=== PATIENT | male | born 1970 | race Caucasian/White ===

== ENCOUNTER → 2020-07-03 | Outpatient (CLI) | payer OTHER | LOC: M LABSMTC 10:28 | PROVIDERS: ATTEND Anesthesiology | DX: Z01.812 Encounter for preprocedural laboratory examination (principal); Z20.822 Contact with and (suspected) exposure to COVID-19 ==

== ENCOUNTER 2020-07-08 09:54 | Day surgery (SDC) | payer OTHER ==
[~2020-07-08] VITALS: Ht 182.9 cm; Wt 93.0 kg
[~2020-07-08 09:54] MED LIST: LIDOCAINE 1% MDV 20ML VIAL SQ PRN; LR 1,000 ML IV ONE
[2020-07-08] MEDS ORDERED: ceFAZolin 1GM VIAL (J0690 PER 500MG) As Ordered ONE (11:01)
[2020-07-08] MEDS ORDERED: BUPIVACAINE/EPIN 0.25% 30 ML VIAL As Ordered ONE (11:21)
[2020-07-08] MEDS ORDERED: ceFAZolin SOD 1 GM in D5W MINI-BAG PLUS 50 ML IV ONE (12:00)
[2020-07-08] MEDS ORDERED: LIDOCAINE 2% 100MG/5ML SDV (FOR ANES.) As Ordered ONE (12:03)
[2020-07-08] MEDS ORDERED: ROCURONIUM BROMIDE 50 MG/5 ML VIAL As Ordered ONE (12:03)
[2020-07-08] MEDS ORDERED: propofoL 200 MG/20 ML VIAL As Ordered ONE (12:03)
[2020-07-08] MEDS ORDERED: METOCLOPRAMIDE INJ 10MG/2ML VIAL (J2765 PER 1) As Ordered ONE (12:03)
[2020-07-08] MEDS ORDERED: dexameTHASONE 4 MG/ML 1ML VIAL (J1100 PER 1MG) As Ordered ONE (12:03)
[2020-07-08] MEDS ORDERED: MIDAZOLAM INJ 2MG/2ML VIAL (J2250 PER 1MG) As Ordered ONE (12:03)
[2020-07-08] MEDS ORDERED: KETOROLAC 60MG 2ML VIAL As Ordered ONE (12:03)
[2020-07-08] MEDS ORDERED: ONDANSETRON 4MG/2ML VIAL As Ordered ONE (12:03)
[2020-07-08] MEDS ORDERED: fentaNYL 250 MCG/5 ML INJECTION (J3010) As Ordered ONE (12:03)
[2020-07-08] MEDS ORDERED: SUGAMMADEX SODIUM 500 MG/5 ML VIAL (BRIDION) As Ordered ONE (12:03)
[2020-07-08] MEDS ORDERED: ACETAMINOPHEN 1000MG 100ML IV BTL (OFIRMEV) (J0131 PER 10MG) As Ordered ONE (12:04)
[2020-07-08] MEDS ORDERED: MEPERIDINE INJ 25 MG/ML VIAL (J2175) As Ordered ONE (13:24)
--- NOTE | 2020-07-08 13:24 | RO ---
OPERATIVE NOTE DATE OF OPERATION: 07/08/2020 PREOPERATIVE DIAGNOSIS: Left inguinal hernia (recurrent). POSTOPERATIVE DIAGNOSIS: Recurrent left inguinal hernia (direct). PROCEDURE: Robotic-assisted laparoscopic repair of a left inguinal hernia with ProGrip mesh. SURGEON: Sabino Mejia Jr., M.D. LINE PAINTING MACHINE OPERATOR: RIVKA Encarnacion (provided instrument exchange, trocar placement, abdominal wall closure, and mesh placement). ANESTHESIA: General endotracheal. ESTIMATED BLOOD LOSS: Minimal. FLUIDS: Crystalloid. DISPOSITION: The patient was taken to the recovery room awake, alert, and hemodynamically stable. BRIEF OPERATIVE SUMMARY: The patient was taken to the operating room and was given general anesthesia. After adequate anesthesia and preoperative antibiotics were given, the patient was prepped and draped in the usual sterile fashion. Next, a supraumbilical incision was made with a skin knife. Blunt dissection was carried down to the fascia. The fascia was entered with a Veress needle and insufflated to 15 mm of pressure. An 8-mm trocar was placed at this time and under direct visualization, two lateral 8-mm trocars were placed. Once these were placed, the patient was placed in a steep Trendelenburg position and the left inguinal hernia was easily seen on visualization. The peritoneum was taken down with monopolar cut scissors and a very attenuated thin peritoneum was seen, but essentially we were able to mobilize this adequately and get this out of the inguinal canal. It was a very small intrusion of the internal ring, but not a true hernia. In the direct area, there was a hernia that was well visualized, mobilized, and reduced off Catrachito's, as well as lateral border of the pubis. Once this was mobilized off the cord structures and the vas was well visualized, the mesh was cut to the appropriate size and placed in the preperitoneal space and pressed into position. The peritoneum was closed over the top of this using 3-0 V-Loc and the trocars were removed under direct visualization. A 4-0 Vicryl was used to close all incisions. Steri-Strips and a dry sterile dressing were applied. The patient was awakened, extubated, and brought to the recovery room awake, alert, and hemodynamically stable. Sponge and needle counts correct x2.
[2020-07-08 13:52] VITALS: BP 150/88
[2020-07-08] MEDS ORDERED: ONDANSETRON 4MG/2ML VIAL IV PRN (14:00)
[2020-07-08] MEDS ORDERED: LR 1,000 ML IV SCH (14:00)
[2020-07-08] MEDS ORDERED: MEPERIDINE INJ 25 MG/ML VIAL (J2175) IV PRN (14:00)
[2020-07-08] MEDS ORDERED: oxyCODONE 5MG TAB PO PRN (14:00)
[2020-07-08] MEDS ORDERED: fentaNYL 100 MCG/2 ML INJECTION (J3010) IV PRN (14:00)
[2020-07-08] MEDS ORDERED: traMADol 50 MG TAB PO PRN (15:00)
== END 2020-07-08 15:00 | disposition home or self-care (01) ==
LOC: M SDC 09:54
PROVIDERS: ATTEND Surgery
DX: K40.91 Unilateral inguinal hernia, without obstruction or gangrene, recurrent (principal); K21.9 Gastro-esophageal reflux disease without esophagitis
CPT/HCPCS: 49651; C1781; J0131; J0690; J1100; J1885; J2250; J2405; J2765; J3010; S2900

== ENCOUNTER → 2024-09-18 | Outpatient (CLI) | payer OTHER ==
[~2024-09-18] MED LIST changes: -LIDOCAINE 1% MDV 20ML VIAL SQ PRN; -LR 1,000 ML IV ONE; +PROHANCE 279.3MG/ML 15ML VIAL As Ordered ONE; +PROHANCE 279.3MG/ML 5ML VIAL As Ordered ONE
== END ==
LOC: M RAD 16:18
PROVIDERS: ATTEND Otolaryngology
DX: C43.4 Malignant melanoma of scalp and neck (principal)
CPT/HCPCS: 70553; A9576

== ENCOUNTER → 2024-09-18 | Outpatient (CLI) | payer OTHER | LOC: M PLARAD 09:20 | PROVIDERS: ATTEND Otolaryngology | DX: C43.4 Malignant melanoma of scalp and neck (principal) | CPT/HCPCS: 78815; A9552 ==

== ENCOUNTER → 2024-11-24 | Outpatient (REF) ==
[~2024-11-24] MED LIST changes: +ONDA-83 PO; +PROC10TA5 PO; -PROHANCE 279.3MG/ML 15ML VIAL As Ordered ONE; -PROHANCE 279.3MG/ML 5ML VIAL As Ordered ONE
== END ==
LOC: M CFLAB 21:45
PROVIDERS: ATTEND Physician Assistant
DX: R11.2 Nausea with vomiting, unspecified (principal)

== ENCOUNTER 2024-11-25 05:35 | Inpatient (IN) | payer OTHER ==
[~2024-11-25] VITALS: Ht 182.9 cm; Wt 89.1 kg
[2024-11-25 12:41] VITALS: BP 136/92; TEMP 99.5; O2SAT 98
[2024-11-25 14:19] LABS: PLATELET COUNT, AUTOMATED 311 10^3/uL (150-450)
[2024-11-25] MEDS ORDERED: NS (Normal Saline) 0.9% 1,000 ML IV SCH (14:25)
[2024-11-25 14:52] LABS: ATYPICAL LYMPH 3 % (0-5); BASOPHILS 1 % (0-1); EOSINOPHILS 1 % (0-3); LYMPHOCYTES 10 % (16-44); MONOCYTES 15 % (0-5); NEUTROPHILS 33 % (28-66)
[2024-11-25 14:53] LABS: PLATELET ESTIMATE NORMAL (NORMAL)
[2024-11-25] MEDS: ONDANSETRON 4MG 2ML VIAL IV PRN (15:14)
[2024-11-25] MEDS: PANTOPRAZOLE 40MG VIAL IV SCH (15:14)
[2024-11-25] MEDS: NS (Normal Saline) 0.9% 1,000 ML IV ONE (15:15)
[2024-11-25] MEDS ORDERED: MED REC IN PROGRESS XX SCH (15:45)
[2024-11-25 16:08] VITALS: TEMP 102.3
[2024-11-25 16:12] VITALS: BP 134/91; TEMP 102.3; O2SAT 91
[2024-11-25] MEDS: PIPERACILLIN/TAZOBACTAM SOD 3.375 GM in DEXTROSE 5% (D5W) ADV/MINI-BAG 50 ML IV SCH (16:44)
[2024-11-25] MEDS: NS (Normal Saline) 0.9% 1,000 ML IV SCH (16:44)
[2024-11-25] MEDS: ACETAMINOPHEN 500 MG TAB PO PRN (16:45)
[2024-11-25 18:26] VITALS: TEMP 99.9
[2024-11-25 20:56] VITALS: BP 132/90; TEMP 100.3; O2SAT 98
[2024-11-25 21:03] VITALS: TEMP 99.7
[2024-11-25] MEDS: LOPERAMIDE 2 MG CAPLET PO PRN (21:30)
[2024-11-26] VITALS (10 sets, daily range): BP systolic 130–131; BP diastolic 80–88; TEMP 97.8–102.4; O2SAT 88–95
[2024-11-26 03:44] LABS: INR 1.2
[2024-11-26 03:48] LABS: BASO # 0.0 10^3/uL (0.0-0.2); BASO % 0.5 % (0.0-1.0); EOS # 0.0 10^3/uL (0.0-0.5); EOS % 0.2 % (0.0-3.0); LYMPH # 0.7 10^3/uL (1.5-5.0); LYMPH % 11.0 % (24.0-44.0); MONO # 1.2 10^3/uL (0.0-0.8); MONO % 18.3 % (2.0-8.0); NEUTROPHILS # 4.5 10^3/uL (1.5-8.5); NEUTROPHILS % 67.3 % (36.0-66.0); PLATELET COUNT, AUTOMATED 280 10^3/uL (150-450)
[2024-11-26 03:53] LABS: ALT/SGPT 12.0 U/L (7.0-40); AST/SGOT 12.0 U/L (<34); CALCIUM LEVEL 7.9 MG/DL (8.5-10.1); CARBON DIOXIDE LEVEL 26.0 MMOL/L (20-31); CHLORIDE LEVEL 104.0 MMOL/L (98-107); CREATININE FOR GFR 1.17 MG/DL (0.70-1.30); GLOMERULAR FILTRATION RATE 75.0 (>56); MAGNESIUM LEVEL 1.4 MG/DL (1.8-2.4); POTASSIUM SERUM 3.7 MMOL/L (3.5-5.1); SODIUM LEVEL 142.0 MMOL/L (136-145)
[2024-11-26] MEDS: MAG SULF 1GM/100ML (MAG RUN) 1 GM in IV 1 EA IV SCH (04:57)
[2024-11-26] MEDS ORDERED: ONDA-83 PO (09:59)
[2024-11-26] MEDS ORDERED: PROC10TA5 PO (09:59)
[2024-11-26] MEDS ORDERED: HOME MED LIST COMPLETE! XX SCH (10:00)
[2024-11-26] MEDS: ENOXAPARIN 40 MG/0.4 ML SYRINGE (J1650 PER 10MG) SC SCH (10:04)
[2024-11-26] MEDS: UNRESOLVED CLARIFICATION ENTRY XX SCH (11:21)
[2024-11-26] MEDS: AZITHROMYCIN 250 MG TABLET PO SCH (11:26)
[2024-11-26] MEDS: ONDANSETRON 4MG 2ML VIAL IV SCH (11:26)
[2024-11-26] MEDS: ACETAMINOPHEN 325 MG TAB PO PRN (21:16)
[2024-11-26 22:46] LABS: FREE T4 1.36 NG/DL (0.89-1.76)
[2024-11-27 03:34] VITALS: BP 131/88; TEMP 99.5; O2SAT 90
[2024-11-27 04:51] VITALS: O2SAT 90
[2024-11-27 06:47] LABS: BASO # 0.1 10^3/uL (0.0-0.2); BASO % 0.7 % (0.0-1.0); EOS # 0.0 10^3/uL (0.0-0.5); EOS % 0.1 % (0.0-3.0); LYMPH # 0.7 10^3/uL (1.5-5.0); LYMPH % 10.2 % (24.0-44.0); MONO # 1.1 10^3/uL (0.0-0.8); MONO % 15.1 % (2.0-8.0); NEUTROPHILS # 4.9 10^3/uL (1.5-8.5); NEUTROPHILS % 69.1 % (36.0-66.0); PLATELET COUNT, AUTOMATED 299 10^3/uL (150-450)
[2024-11-27 07:00] LABS: CALCIUM LEVEL 8.0 MG/DL (8.5-10.1); CARBON DIOXIDE LEVEL 25.0 MMOL/L (20-31); CHLORIDE LEVEL 102.0 MMOL/L (98-107); CREATININE FOR GFR 1.11 MG/DL (0.70-1.30); GLOMERULAR FILTRATION RATE 79.9 (>56); POTASSIUM SERUM 3.3 MMOL/L (3.5-5.1); SODIUM LEVEL 143.0 MMOL/L (136-145)
[2024-11-27 08:43] LABS: MAGNESIUM LEVEL 2.1 MG/DL (1.8-2.4)
[2024-11-27] MEDS: NS 0.45% 1,000 ML IV ONE (09:31)
[2024-11-27] MEDS: POTASSIUM CHLORIDE 10MEQ SR TABLET PO ONE (09:31)
[2024-11-27 12:00] VITALS: BP_SYST 133; BP_SYST 135; BP_DIAS 68; BP_DIAS 91; TEMP 98.1; TEMP 99.8; O2SAT 91; O2SAT 97
[2024-11-27] MEDS: MAG SULF 1GM/100ML (MAG RUN) 1 GM in IV 1 EA IV ONE (12:32)
[2024-11-27] MEDS: KCL 40MEQ IN D5/0.45NS 1000ML 1,000 ML IV SCH (13:44)
[2024-11-27 16:56] LABS: CALCIUM LEVEL 8.2 MG/DL (8.5-10.1); CARBON DIOXIDE LEVEL 25 MMOL/L (20-31); CHLORIDE LEVEL 101 MMOL/L (98-107); CREATININE FOR GFR 1.00 MG/DL (0.70-1.30); GLOMERULAR FILTRATION RATE > 90.0 (>56); MAGNESIUM LEVEL 2.4 MG/DL (1.8-2.4); POTASSIUM SERUM 3.5 MMOL/L (3.5-5.1); SODIUM LEVEL 141 MMOL/L (136-145)
[2024-11-27 20:36] VITALS: BP 121/84; TEMP 99; O2SAT 94
[2024-11-28 03:40] VITALS: BP 153/80; TEMP 97.8; O2SAT 99
[2024-11-28 03:45] VITALS: BP 127/88; TEMP 98.8; O2SAT 94
[2024-11-28 07:07] LABS: CALCIUM LEVEL 8.4 MG/DL (8.5-10.1); CARBON DIOXIDE LEVEL 27.0 MMOL/L (20-31); CHLORIDE LEVEL 104.0 MMOL/L (98-107); CREATININE FOR GFR 1.01 MG/DL (0.70-1.30); GLOMERULAR FILTRATION RATE 89.5 (>56); POTASSIUM SERUM 3.6 MMOL/L (3.5-5.1); SODIUM LEVEL 141.0 MMOL/L (136-145)
[2024-11-28 07:10] LABS: PLATELET COUNT, AUTOMATED 329 10^3/uL (150-450)
[2024-11-28 08:44] LABS: MONOCYTES 15 % (0-5)
[2024-11-28 08:45] LABS: NEUTROPHILS 52 % (28-66)
[2024-11-28 08:46] LABS: ATYPICAL LYMPH 1 % (0-5); LYMPHOCYTES 7 % (16-44); PLATELET ESTIMATE NORMAL (NORMAL)
[2024-11-28 12:00] VITALS: BP 127/90; TEMP 95.9; O2SAT 94
[2024-11-28] MEDS: SODIUM CHLORIDE 0.9% INJ 10 ML SYR IV SCH (18:29)
[2024-11-28 21:24] VITALS: BP 124/87; TEMP 99.3; O2SAT 93
[2024-11-29 05:22] VITALS: BP 125/88; TEMP 99; O2SAT 93
[2024-11-29 05:55] LABS: BASO # 0.1 10^3/uL (0.0-0.2); BASO % 0.6 % (0.0-1.0); EOS # 0.0 10^3/uL (0.0-0.5); EOS % 0.1 % (0.0-3.0); LYMPH # 0.9 10^3/uL (1.5-5.0); LYMPH % 8.6 % (24.0-44.0); MONO # 1.5 10^3/uL (0.0-0.8); MONO % 15.0 % (2.0-8.0); NEUTROPHILS # 7.5 10^3/uL (1.5-8.5); NEUTROPHILS % 74.3 % (36.0-66.0); PLATELET COUNT, AUTOMATED 375 10^3/uL (150-450)
[2024-11-29 06:04] LABS: CALCIUM LEVEL 9.0 MG/DL (8.5-10.1); CARBON DIOXIDE LEVEL 27.0 MMOL/L (20-31); CHLORIDE LEVEL 101.0 MMOL/L (98-107); CREATININE FOR GFR 1.05 MG/DL (0.70-1.30); GLOMERULAR FILTRATION RATE 85.4 (>56); POTASSIUM SERUM 3.3 MMOL/L (3.5-5.1); SODIUM LEVEL 141.0 MMOL/L (136-145)
[2024-11-29 12:00] VITALS: BP 125/89; TEMP 98.1; O2SAT 94
[2024-11-29] MEDS: POLYVINYL ALCOHOL OPHTH SOLN 15ML (LIQUITEARS) OU PRN (18:25)
[2024-11-29 20:41] VITALS: BP 128/84; TEMP 97.4; O2SAT 92
[2024-11-30 05:04] VITALS: BP 124/86; TEMP 98.2; O2SAT 93
[2024-11-30 06:05] LABS: BASO # 0.1 10^3/uL (0.0-0.2); BASO % 0.4 % (0.0-1.0); EOS # 0.0 10^3/uL (0.0-0.5); EOS % 0.1 % (0.0-3.0); LYMPH # 0.8 10^3/uL (1.5-5.0); LYMPH % 6.7 % (24.0-44.0); MONO # 1.8 10^3/uL (0.0-0.8); MONO % 15.5 % (2.0-8.0); NEUTROPHILS # 8.9 10^3/uL (1.5-8.5); NEUTROPHILS % 76.2 % (36.0-66.0); PLATELET COUNT, AUTOMATED 415 10^3/uL (150-450)
[2024-11-30 06:33] LABS: CALCIUM LEVEL 9.1 MG/DL (8.5-10.1); CARBON DIOXIDE LEVEL 26.0 MMOL/L (20-31); CHLORIDE LEVEL 100.0 MMOL/L (98-107); CREATININE FOR GFR 1.22 MG/DL (0.70-1.30); GLOMERULAR FILTRATION RATE 71.3 (>56); POTASSIUM SERUM 3.3 MMOL/L (3.5-5.1); SODIUM LEVEL 142.0 MMOL/L (136-145)
[2024-11-30] MEDS ORDERED: MAG SULF 1GM/100ML (MAG RUN) 1 GM in IV 1 EA IV ONE (08:00)
[2024-11-30 08:17] LABS: MAGNESIUM LEVEL 2.6 MG/DL (1.8-2.4); PHOSPHORUS LEVEL 3.8 MG/DL (2.5-4.9)
[2024-11-30] MEDS: NS 0.45% 1,000 ML IV SCH (09:06)
[2024-11-30] MEDS: POTASSIUM CHLORIDE 10MEQ SR TABLET PO ONE (09:09)
[2024-11-30] MEDS: ONDANSETRON 4MG 2ML VIAL IV ONE (09:16)
[2024-11-30] MEDS: KCL 40MEQ IN D5/0.45NS 1000ML 1,000 ML IV SCH (11:50)
[2024-11-30 12:00] VITALS: BP 124/87; TEMP 99; O2SAT 97
[2024-11-30 14:47] LABS: CALCIUM LEVEL 8.5 MG/DL (8.5-10.1); CARBON DIOXIDE LEVEL 26.0 MMOL/L (20-31); CHLORIDE LEVEL 100.0 MMOL/L (98-107); CREATININE FOR GFR 1.06 MG/DL (0.70-1.30); GLOMERULAR FILTRATION RATE 84.4 (>56); POTASSIUM SERUM 3.2 MMOL/L (3.5-5.1); SODIUM LEVEL 138.0 MMOL/L (136-145)
[2024-11-30] MEDS: LOPERAMIDE 2 MG CAPLET PO ONE (14:57)
[2024-11-30] MEDS: INSULIN LISPRO (NovoLOG) PER UNIT SC SCH (15:58)
[2024-11-30] MEDS: KCL 10MEQ/100ML SWI (KRUN) 10 MEQ in IV 1 EA IV SCH (16:05)
[2024-11-30] MEDS: VITAMIN A & D OINTMENT 42.5GM TOP SCH (16:06)
[2024-11-30] MEDS: AMINO AC/ELECTROLYTE/DEX/CALC 1,000 ML IV SCH (17:44)
[2024-11-30] MEDS: FAT EMULSION IV 250 ML IV ONE (17:44)
[2024-11-30 20:00] VITALS: BP 124/88; TEMP 99; O2SAT 93
[2024-11-30] MEDS: SODIUM CHLORIDE 0.9% INJ 10 ML SYR IV PRN (22:31)
[2024-11-30] MEDS ORDERED: LIDOCAINE 2% 5 ML JELLY UROJET TOP PRN (22:45)
[2024-12-01] MEDS: DIPHENOXYLATE HCL/ATROPINE 2.5 MG/0.025 MG TABLET PO ONE ×2 (00:01→06:09)
[2024-12-01 01:07] LABS: KETONE, URINE AUTO RFX NEGATIVE (NEGATIVE); MUCUS, URINE RFX SMALL (NEGATIVE); NITRITE, URINE AUTO RFX NEGATIVE (NEGATIVE); RBC, URINE AUTO RFX TNTC /HPF (0-3); SQUAM EPITHELIAL CELL UR AURFX 0 /HPF (0-6)
[2024-12-01 01:21] LABS: LEUKOCYTE ESTERASE UR AUTO RFX TRACE (NEGATIVE); WBC, URINE AUTO RFX 22 /HPF (0-3)
[2024-12-01 01:47] LABS: CALCIUM LEVEL 8.0 MG/DL (8.5-10.1); CARBON DIOXIDE LEVEL 24 MMOL/L (20-31); CHLORIDE LEVEL 101 MMOL/L (98-107); CREATININE FOR GFR 0.93 MG/DL (0.70-1.30); GLOMERULAR FILTRATION RATE > 90.0 (>56); POTASSIUM SERUM 3.8 MMOL/L (3.5-5.1); SODIUM LEVEL 135 MMOL/L (136-145)
[2024-12-01] MEDS ORDERED: DIPHENOXYLATE HCL/ATROPINE 2.5 MG/0.025 MG TABLET PO SCH (06:00)
[2024-12-01 06:06] VITALS: BP 121/80; TEMP 98.2; O2SAT 94
[2024-12-01] MEDS: NS (Normal Saline) 0.9% 1,000 ML IV ONE ×2 (06:12→08:44)
[2024-12-01 06:34] LABS: BASO # 0.0 10^3/uL (0.0-0.2); BASO % 0.3 % (0.0-1.0); EOS # 0.0 10^3/uL (0.0-0.5); EOS % 0.2 % (0.0-3.0); LYMPH # 0.8 10^3/uL (1.5-5.0); LYMPH % 8.7 % (24.0-44.0); MONO # 1.0 10^3/uL (0.0-0.8); MONO % 10.8 % (2.0-8.0); NEUTROPHILS # 7.3 10^3/uL (1.5-8.5); NEUTROPHILS % 78.1 % (36.0-66.0); PLATELET COUNT, AUTOMATED 288 10^3/uL (150-450)
[2024-12-01 07:00] LABS: CALCIUM LEVEL 8.0 MG/DL (8.5-10.1); CARBON DIOXIDE LEVEL 25 MMOL/L (20-31); CHLORIDE LEVEL 102 MMOL/L (98-107); CREATININE FOR GFR 0.81 MG/DL (0.70-1.30); GLOMERULAR FILTRATION RATE > 90.0 (>56); POTASSIUM SERUM 3.3 MMOL/L (3.5-5.1); SODIUM LEVEL 137 MMOL/L (136-145)
[2024-12-01 08:09] LABS: ERYTHROCYTE SEDIMENTATION RATE 25 mm/hr (0-20)
[2024-12-01 08:19] LABS: C REACTIVE PROTEIN QUANTITATIV 5.41 MG/DL (<1.0)
[2024-12-01 08:26] LABS: MAGNESIUM LEVEL 2.3 MG/DL (1.8-2.4); PHOSPHORUS LEVEL 2.8 MG/DL (2.5-4.9)
[2024-12-01] MEDS: FOSFOMYCIN TROMETHAMINE 3 GM POWDER PACKET PO ONE (08:43)
[2024-12-01] MEDS: LOPERAMIDE 2 MG CAPLET PO ONE (08:44)
[2024-12-01] MEDS: PHENAZOPYRIDINE 100 MG TAB PO SCH (08:45)
[2024-12-01] MEDS ORDERED: KCL 20MEQ IN 100ML SWI (KRUN) 20 MEQ in IV 1 EA IV SCH (09:00)
[2024-12-01] MEDS: KCL 10MEQ/100ML SWI (KRUN) 10 MEQ in IV 1 EA IV SCH (10:02)
[2024-12-01] MEDS: CHOLESTYRAMINE 4 GM PWD PKT PO ONE (10:02)
[2024-12-01 12:00] VITALS: BP 116/77; TEMP 99.3; O2SAT 95
[2024-12-01] MEDS: ONDANSETRON 4MG 2ML VIAL IV PRN (13:20)
[2024-12-01 14:06] LABS: CALCIUM LEVEL 7.8 MG/DL (8.5-10.1); CARBON DIOXIDE LEVEL 21 MMOL/L (20-31); CHLORIDE LEVEL 105 MMOL/L (98-107); CREATININE FOR GFR 0.77 MG/DL (0.70-1.30); GLOMERULAR FILTRATION RATE > 90.0 (>56); MAGNESIUM LEVEL 2.1 MG/DL (1.8-2.4); POTASSIUM SERUM 3.8 MMOL/L (3.5-5.1); SODIUM LEVEL 138 MMOL/L (136-145)
[2024-12-01] MEDS: DIPHENOXYLATE HCL/ATROPINE 2.5 MG/0.025 MG TABLET PO SCH (14:27)
[2024-12-01] MEDS: FAT EMULSION IV 250 ML IV ONE (18:12)
[2024-12-01] MEDS: INSULIN LISPRO (NovoLOG) PER UNIT SC SCH (18:12)
[2024-12-01] MEDS: AMINO AC/ELECTROLYTE/DEX/CALC 2,000 ML IV SCH (18:12)
[2024-12-01 20:06] VITALS: BP 117/77; TEMP 100; O2SAT 93
[2024-12-02 00:29] LABS: CALCIUM LEVEL 8.0 MG/DL (8.5-10.1); CARBON DIOXIDE LEVEL 23 MMOL/L (20-31); CHLORIDE LEVEL 103 MMOL/L (98-107); CREATININE FOR GFR 0.76 MG/DL (0.70-1.30); GLOMERULAR FILTRATION RATE > 90.0 (>56); MAGNESIUM LEVEL 2.1 MG/DL (1.8-2.4); POTASSIUM SERUM 4.0 MMOL/L (3.5-5.1); SODIUM LEVEL 138 MMOL/L (136-145)
[2024-12-02 05:12] VITALS: BP 129/94; TEMP 98.4; O2SAT 94
[2024-12-02] MEDS: LR 1,000 ML IV ONE ×2 (06:47→07:53)
[2024-12-02] MEDS: CALCIUM GLUCONATE 1,000 MG in DEXTROSE 5% (D5W) MINI-BAG PLU 100 ML IV ONE (06:56)
[2024-12-02 09:21] LABS: PLATELET COUNT, AUTOMATED 262 10^3/uL (150-450)
[2024-12-02 09:43] LABS: CALCIUM LEVEL 8.3 MG/DL (8.5-10.1); CARBON DIOXIDE LEVEL 27 MMOL/L (20-31); CHLORIDE LEVEL 101 MMOL/L (98-107); CREATININE FOR GFR 0.71 MG/DL (0.70-1.30); GLOMERULAR FILTRATION RATE > 90.0 (>56); MAGNESIUM LEVEL 2.0 MG/DL (1.8-2.4); PHOSPHORUS LEVEL 2.7 MG/DL (2.5-4.9); POTASSIUM SERUM 3.3 MMOL/L (3.5-5.1); SODIUM LEVEL 138 MMOL/L (136-145)
[2024-12-02 10:23] LABS: EOSINOPHILS 1 % (0-3); LYMPHOCYTES 16 % (16-44); METAMYELOCYTES 4 % (0-0); MONOCYTES 7 % (0-5); NEUTROPHILS 63 % (28-66)
[2024-12-02 10:25] LABS: PLATELET ESTIMATE NORMAL (NORMAL)
[2024-12-02] MEDS ORDERED: LOPERAMIDE 2 MG CAPLET PO PRN (11:00)
[2024-12-02] MEDS ORDERED: CHOLESTYRAMINE 4 GM PWD PKT PO ONE (11:45)
[2024-12-02 12:00] VITALS: BP 127/90; TEMP 98.8; O2SAT 93
[2024-12-02] MEDS: LOPERAMIDE 2 MG CAPLET PO ONE (12:19)
[2024-12-02] MEDS: KCL 10MEQ/100ML SWI (KRUN) 10 MEQ in IV 1 EA IV SCH (14:28)
[2024-12-02 15:06] LABS: INR 0.99
[2024-12-02 15:24] LABS: IRON (FE) 149.0 UG/DL (65-175); LDH LACTATE DEHYDROGENASE 189.0 U/L (120-246); PERCENT SATURATION 65.6 % (19.7-50.0); VITAMIN B12 LEVEL 594.0 PG/ML (211-911)
[2024-12-02] MEDS: FAT EMULSION IV 250 ML IV ONE (18:10)
[2024-12-02] MEDS: AMINO AC/ELECTROLYTE/DEX/CALC 2,000 ML IV SCH (18:11)
[2024-12-02] MEDS: INSULIN LISPRO (NovoLOG) PER UNIT SC SCH (18:12)
[2024-12-02 20:41] VITALS: BP 125/89; TEMP 97.3; O2SAT 93
[2024-12-02] MEDS: KCL 40MEQ in NS 1000ML 1,000 ML IV SCH (20:44)
[2024-12-03 03:53] VITALS: BP 127/84; TEMP 98.2; O2SAT 94
[2024-12-03 07:12] LABS: BASO # 0.0 10^3/uL (0.0-0.2); BASO % 0.1 % (0.0-1.0); EOS # 0.0 10^3/uL (0.0-0.5); EOS % 0.0 % (0.0-3.0); LYMPH # 1.1 10^3/uL (1.5-5.0); LYMPH % 13.7 % (24.0-44.0); MONO # 0.8 10^3/uL (0.0-0.8); MONO % 10.6 % (2.0-8.0); NEUTROPHILS # 5.8 10^3/uL (1.5-8.5); NEUTROPHILS % 74.1 % (36.0-66.0); PLATELET COUNT, AUTOMATED 297 10^3/uL (150-450)
[2024-12-03 07:43] LABS: CALCIUM LEVEL 8.1 MG/DL (8.5-10.1); CARBON DIOXIDE LEVEL 26 MMOL/L (20-31); CHLORIDE LEVEL 102 MMOL/L (98-107); CREATININE FOR GFR 0.68 MG/DL (0.70-1.30); GLOMERULAR FILTRATION RATE > 90.0 (>56); MAGNESIUM LEVEL 2.0 MG/DL (1.8-2.4); PHOSPHORUS LEVEL 2.7 MG/DL (2.5-4.9); POTASSIUM SERUM 4.1 MMOL/L (3.5-5.1); SODIUM LEVEL 139 MMOL/L (136-145)
[2024-12-03] MEDS: LOPERAMIDE 2 MG CAPLET PO ONE (08:17)
[2024-12-03 12:00] VITALS: BP 124/89; TEMP 98; O2SAT 91
[2024-12-03] MEDS ORDERED: DEXTROSE 50% 50 ML SYRINGE IV PRN (16:45)
[2024-12-03] MEDS ORDERED: GLUCAGON INJ 1 MG VIAL SC PRN (16:45)
[2024-12-03] MEDS ORDERED: GLUCOSE 4 GM CHEW PO PRN (16:45)
[2024-12-03] MEDS: INSULIN LISPRO (NovoLOG) PER UNIT SC SCH (17:51)
[2024-12-03] MEDS: FAT EMULSION IV 250 ML IV ONE (17:52)
[2024-12-03] MEDS: MULTIVITAMIN -ADULT INJECTION 10 ML, ZINC/COPPER/MANGANESE/SELENIUM 1 ML in AMINO AC/EL... IV SCH (18:26)
[2024-12-03 19:42] VITALS: BP 123/85; TEMP 99; O2SAT 94
[2024-12-03 23:53] VITALS: TEMP 98.9
[2024-12-04 04:30] VITALS: BP 124/85; TEMP 99.7; O2SAT 94
[2024-12-04 06:05] LABS: BASO # 0.0 10^3/uL (0.0-0.2); BASO % 0.2 % (0.0-1.0); EOS # 0.0 10^3/uL (0.0-0.5); EOS % 0.4 % (0.0-3.0); LYMPH # 1.5 10^3/uL (1.5-5.0); LYMPH % 18.2 % (24.0-44.0); MONO # 0.9 10^3/uL (0.0-0.8); MONO % 10.6 % (2.0-8.0); NEUTROPHILS # 5.8 10^3/uL (1.5-8.5); NEUTROPHILS % 69.1 % (36.0-66.0); PLATELET COUNT, AUTOMATED 286 10^3/uL (150-450)
[2024-12-04 06:40] LABS: CALCIUM LEVEL 7.9 MG/DL (8.5-10.1); CARBON DIOXIDE LEVEL 29 MMOL/L (20-31); CHLORIDE LEVEL 98 MMOL/L (98-107); CREATININE FOR GFR 0.62 MG/DL (0.70-1.30); GLOMERULAR FILTRATION RATE > 90.0 (>56); MAGNESIUM LEVEL 2.1 MG/DL (1.8-2.4); PHOSPHORUS LEVEL 3.5 MG/DL (2.5-4.9); POTASSIUM SERUM 4.1 MMOL/L (3.5-5.1); SODIUM LEVEL 136 MMOL/L (136-145)
[2024-12-04 07:23] VITALS: TEMP 99.1
[2024-12-04 08:24] VITALS: BP 126/89; TEMP 101.4; O2SAT 94
[2024-12-04] MEDS: LanTUS (INSULIN GLARGINE INJ) 1 UNITS/0.01 ML SC SCH ×2 (09:01→21:58)
[2024-12-04 09:34] VITALS: TEMP 101
[2024-12-04 12:00] VITALS: BP 124/87; TEMP 98; O2SAT 97
[2024-12-04] MEDS: AMINO AC/ELECTROLYTE/DEX/CALC 2,000 ML IV SCH (17:55)
[2024-12-04] MEDS: FAT EMULSION IV 250 ML IV ONE (17:55)
[2024-12-04] MEDS: INSULIN LISPRO (NovoLOG) PER UNIT SC SCH (18:02)
[2024-12-04 19:33] VITALS: BP 126/89; TEMP 97.9; O2SAT 95
[2024-12-04] MEDS ORDERED: ONDANSETRON 4MG 2ML VIAL IV PRN (20:00)
[2024-12-04] MEDS: ONDANSETRON 4MG 2ML VIAL IV SCH (21:22)
[2024-12-04] MEDS: PANTOPRAZOLE 40MG VIAL IV SCH (21:23)
[2024-12-05] VITALS (11 sets, daily range): BP systolic 118–125; BP diastolic 82–89; TEMP 97.2–98.6; O2SAT 93–97
[2024-12-05] MEDS: POLYETHYLENE GLYCOL 238 GM BOTTLE PO ONE (05:52)
[2024-12-05 06:04] LABS: BASO # 0.0 10^3/uL (0.0-0.2); BASO % 0.2 % (0.0-1.0); EOS # 0.0 10^3/uL (0.0-0.5); EOS % 0.0 % (0.0-3.0); LYMPH # 1.2 10^3/uL (1.5-5.0); LYMPH % 13.7 % (24.0-44.0); MONO # 0.9 10^3/uL (0.0-0.8); MONO % 10.9 % (2.0-8.0); NEUTROPHILS # 6.3 10^3/uL (1.5-8.5); NEUTROPHILS % 73.7 % (36.0-66.0); PLATELET COUNT, AUTOMATED 384 10^3/uL (150-450)
[2024-12-05 06:32] LABS: CALCIUM LEVEL 8.4 MG/DL (8.5-10.1); CARBON DIOXIDE LEVEL 27 MMOL/L (20-31); CHLORIDE LEVEL 97 MMOL/L (98-107); CREATININE FOR GFR 0.72 MG/DL (0.70-1.30); GLOMERULAR FILTRATION RATE > 90.0 (>56); MAGNESIUM LEVEL 2.2 MG/DL (1.8-2.4); PHOSPHORUS LEVEL 4.0 MG/DL (2.5-4.9); POTASSIUM SERUM 4.9 MMOL/L (3.5-5.1); SODIUM LEVEL 134 MMOL/L (136-145)
[2024-12-05] MEDS: LanTUS (INSULIN GLARGINE INJ) 1 UNITS/0.01 ML SC SCH (09:18)
[2024-12-05] MEDS: COLESEVELAM 625 MG TAB (WELCHOL) PO SCH (17:34)
[2024-12-05] MEDS: INSULIN LISPRO (NovoLOG) PER UNIT SC SCH (17:54)
[2024-12-05] MEDS: MULTIVITAMIN -ADULT INJECTION 10 ML, ZINC/COPPER/MANGANESE/SELENIUM 1 ML in AMINO AC/EL... IV SCH (17:55)
[2024-12-05] MEDS: FAT EMULSION IV 250 ML IV ONE (17:55)
[2024-12-06] VITALS: BP 116/82; TEMP 98.8; O2SAT 97
[2024-12-06 04:28] VITALS: BP 113/78; TEMP 98.4; O2SAT 94
[2024-12-06 06:05] LABS: BASO # 0.0 10^3/uL (0.0-0.2); BASO % 0.1 % (0.0-1.0); EOS # 0.0 10^3/uL (0.0-0.5); EOS % 0.0 % (0.0-3.0); LYMPH # 1.1 10^3/uL (1.5-5.0); LYMPH % 14.5 % (24.0-44.0); MONO # 0.8 10^3/uL (0.0-0.8); MONO % 10.1 % (2.0-8.0); NEUTROPHILS # 5.7 10^3/uL (1.5-8.5); NEUTROPHILS % 72.7 % (36.0-66.0); PLATELET COUNT, AUTOMATED 375 10^3/uL (150-450)
[2024-12-06 06:39] LABS: CALCIUM LEVEL 8.3 MG/DL (8.5-10.1); CARBON DIOXIDE LEVEL 27 MMOL/L (20-31); CHLORIDE LEVEL 97 MMOL/L (98-107); CREATININE FOR GFR 0.78 MG/DL (0.70-1.30); GLOMERULAR FILTRATION RATE > 90.0 (>56); MAGNESIUM LEVEL 2.2 MG/DL (1.8-2.4); PHOSPHORUS LEVEL 3.9 MG/DL (2.5-4.9); POTASSIUM SERUM 4.9 MMOL/L (3.5-5.1); SODIUM LEVEL 133 MMOL/L (136-145)
[2024-12-06 09:07] VITALS: BP 127/91; TEMP 98.4; O2SAT 96
[2024-12-06 11:38] VITALS: BP 122/87; TEMP 98.8; O2SAT 94
[2024-12-06] MEDS ORDERED: INSULIN LISPRO (NovoLOG) PER UNIT SC SCH ×2 (12:00)
[2024-12-06] MEDS: INSULIN LISPRO (NovoLOG) PER UNIT SC SCH ×2 (13:27→13:28)
[2024-12-06 16:46] VITALS: BP 122/88; TEMP 98.8; O2SAT 94
[2024-12-06 19:54] VITALS: BP 121/87; TEMP 97.7; O2SAT 95
[2024-12-06] MEDS: DIPHENOXYLATE HCL/ATROPINE 2.5 MG/0.025 MG TABLET PO SCH (20:30)
[2024-12-07] VITALS: BP 122/88; TEMP 97.9; O2SAT 95
[2024-12-07 04:00] VITALS: BP 122/87; TEMP 98.8; O2SAT 95
[2024-12-07 06:04] LABS: BASO # 0.0 10^3/uL (0.0-0.2); BASO % 0.2 % (0.0-1.0); EOS # 0.0 10^3/uL (0.0-0.5); EOS % 0.0 % (0.0-3.0); LYMPH # 1.5 10^3/uL (1.5-5.0); LYMPH % 15.9 % (24.0-44.0); MONO # 1.0 10^3/uL (0.0-0.8); MONO % 10.5 % (2.0-8.0); NEUTROPHILS # 6.7 10^3/uL (1.5-8.5); NEUTROPHILS % 71.1 % (36.0-66.0); PLATELET COUNT, AUTOMATED 420 10^3/uL (150-450)
[2024-12-07 06:34] LABS: CALCIUM LEVEL 8.4 MG/DL (8.5-10.1); CARBON DIOXIDE LEVEL 30 MMOL/L (20-31); CHLORIDE LEVEL 97 MMOL/L (98-107); CREATININE FOR GFR 0.83 MG/DL (0.70-1.30); GLOMERULAR FILTRATION RATE > 90.0 (>56); MAGNESIUM LEVEL 2.1 MG/DL (1.8-2.4); PHOSPHORUS LEVEL 4.5 MG/DL (2.5-4.9); POTASSIUM SERUM 4.7 MMOL/L (3.5-5.1); SODIUM LEVEL 135 MMOL/L (136-145)
[2024-12-07 08:00] VITALS: BP 128/94; TEMP 97.9; O2SAT 95
[2024-12-07] MEDS: predniSONE 20 MG TAB PO SCH (08:44)
[2024-12-07] MEDS: DIPHENOXYLATE HCL/ATROPINE 2.5 MG/0.025 MG TABLET PO SCH (08:44)
[2024-12-07] MEDS: LanTUS (INSULIN GLARGINE INJ) 1 UNITS/0.01 ML SC SCH (08:44)
[2024-12-07 12:00] VITALS: BP 114/80; TEMP 98.1; O2SAT 95
[2024-12-07] MEDS ORDERED: PRED10TA2 PO (12:04)
[2024-12-07] MEDS ORDERED: PANT40TA29 PO (12:04)
[2024-12-07] MEDS ORDERED: GLIP10TA PO (12:04)
[2024-12-07] MEDS ORDERED: LOPE2CAP PO (12:04)
[2024-12-07] MEDS ORDERED: COLE625T17 PO (12:04)
[2024-12-07 12:51] LABS: ESTIMATED AVERAGE GLUCOSE 163.0 MG/DL (60-110)
[2024-12-07] MEDS ORDERED: CHOL4POW26 PO (13:22)
== END 2024-12-07 14:30 | disposition home or self-care (01) | DRG 720 ==
LOC: M MSPAV 12:42
PROVIDERS: ADMIT Family Medicine; ATTEND Internal Medicine Nephrology
PROC: 0DBE8ZX Excision of Large Intestine, Via Natural or Artificial Opening Endoscopic, Diagnostic (ICD-10-PCS; 2024-12-05)
PROC: 0DBB8ZX Excision of Ileum, Via Natural or Artificial Opening Endoscopic, Diagnostic (ICD-10-PCS; principal; 2024-12-05 13:15)
DX: A41.9 Sepsis, unspecified organism (principal); D84.821 Immunodeficiency due to drugs; N17.9 Acute kidney failure, unspecified; K52.1 Toxic gastroenteritis and colitis; E46 Unspecified protein-calorie malnutrition; C43.4 Malignant melanoma of scalp and neck; A04.4 Other intestinal Escherichia coli infections; R16.2 Hepatomegaly with splenomegaly, not elsewhere classified; E83.42 Hypomagnesemia; E11.65 Type 2 diabetes mellitus with hyperglycemia; R11.2 Nausea with vomiting, unspecified; R19.7 Diarrhea, unspecified; K21.9 Gastro-esophageal reflux disease without esophagitis; T45.1X5A Adverse effect of antineoplastic and immunosuppressive drugs, initial encounter; E86.0 Dehydration; N39.0 Urinary tract infection, site not specified; E87.6 Hypokalemia; T38.0X5A Adverse effect of glucocorticoids and synthetic analogues, initial encounter; L27.0 Generalized skin eruption due to drugs and medicaments taken internally; Z79.84 Long term (current) use of oral hypoglycemic drugs; Z79.899 Other long term (current) drug therapy

== ENCOUNTER → 2024-11-25 | Outpatient (REF) | LOC: M CFLAB 05:16 | PROVIDERS: ATTEND Physician Assistant | DX: N39.0 Urinary tract infection, site not specified (principal) ==